=== PATIENT | female | born 1975 | race Caucasian/White ===

== ENCOUNTER 2022-10-13 05:55 | Day surgery (SDC) | payer OTHER ==
[~2022-10-13] VITALS: Ht 165.1 cm; Wt 113.6 kg
[2022-10-13] MEDS ORDERED: LIDOCAINE 4% 50 ML SOLUTION TP ONE (05:56)
[2022-10-13] MEDS ORDERED: BENZOCAINE 20% 50 MCG/SPRAY 57 GM TP ONE (05:56)
[2022-10-13] MEDS ORDERED: LIDOCAINE 2% 11 ML JELLY TP ONE (05:56)
[2022-10-13 06:44] LABS: COVID AG,FIA SOURCE NASAL SWAB
[2022-10-13] MEDS ORDERED: SODIUM CHLORIDE 0.9% 1,000 ML ONE (06:45)
[2022-10-13] MEDS ORDERED: SODIUM CHLORIDE 0.9% 1,000 ML IV ONE (07:00)
[2022-10-13] MEDS ORDERED: APIX5TAB PO (07:38)
[2022-10-13] MEDS ORDERED: MIDAZOLAM HCL 5 MG/ML VIAL ONE (08:21)
[2022-10-13] MEDS ORDERED: FentaNYL CITRATE PF 100 MCG/2 ML VIAL ONE (08:21)
[2022-10-13] MEDS ORDERED: MethylPREDNISolone SOD SUCC 125 MG/2 ML VIAL ONE (08:41)
[2022-10-13] MEDS ORDERED: MethylPREDNISolone SOD SUCC 125 MG/2 ML VIAL IVP ONE (09:00)
[2022-10-13] MEDS ORDERED: OXYGEN THERAPY IH SCH (20:00)
== END 2022-10-13 10:10 | disposition home or self-care (01) ==
LOC: SURGERY 05:55
PROVIDERS: ATTEND Internal Medicine Critical Care Medicine
DX: J38.4 Edema of larynx (principal); B37.0 Candidal stomatitis; D64.9 Anemia, unspecified; Z20.822 Contact with and (suspected) exposure to COVID-19; Z90.49 Acquired absence of other specified parts of digestive tract; Z91.018 Allergy to other foods; Z79.899 Other long term (current) drug therapy; Z98.890 Other specified postprocedural states
CPT/HCPCS: 31623; 84703; 87101; 87220; 87070; 88108; 88305; 31624; 71045; 87015; 87426; 87206; J3010; J2930; J2250; Q9967; J7030; C9803; Z7610